=== PATIENT | male | born 1980 | race Caucasian/White ===

== ENCOUNTER 2022-01-13 09:25 | Emergency (ER) | payer MEDICAID ==
[~2022-01-13] VITALS: Ht 188 cm; Wt 107.0 kg
[2022-01-13] MEDS ORDERED: KETOROLAC TROMETHAMINE 60 MG/2 ML VIAL IM ONE (10:15)
[2022-01-13 10:16] LABS: BASOPHILS % (AUTO) 0.7 % (0.0-2.0); EOSINOPHILS % (AUTO) 1.8 % (1.0-6.0); HEMATOCRIT 38.2 % (41-53); HEMOGLOBIN 13.3 g/dL (13.5-17.5); LYMPHOCYTES # (AUTO) 1.5 K/uL (1.0-4.8); MEAN CORPUSCULAR HEMOGLOBIN 29.2 pg (26.0-34.0); MEAN CORPUSCULAR HGB CONC 34.8 G/dL (31.0-37.0); MEAN CORPUSCULAR VOLUME 84 fL (80-100); MONOCYTES # (AUTO) 0.7 K/uL (0.1-1.0); MONOCYTES % (AUTO) 8.1 % (2.0-9.0); NEUTROPHILS # (AUTO) 6.2 K/uL (1.8-7.7); NEUTROPHILS % (AUTO) 72.4 % (40.0-70.0); PLATELET COUNT (AUTO) 291 K/uL (150-450); RED BLOOD CELL COUNT(AUTO) 4.56 MIL/uL (4.50-5.90); RED CELL DISTRIBUTION WIDTH 12.8 % (11.5-14.5)
[2022-01-13 10:21] LABS: ANION GAP 11 mmol/L (8-16); CALCIUM, TOTAL 8.4 mg/dL (8.8-10.5); CARBON DIOXIDE 27 mmol/L (22-29); CHLORIDE 102 mmol/L (98-107); CREATININE 0.89 mg/dL (0.60-1.30); GLOMERULAR FILTR. RATE CALC > 60 mL/min (>60); GLUCOSE,RANDOM 170 mg/dL (70-110); POTASSIUM 3.9 mmol/L (3.5-5.1); SODIUM SERUM 140 mmol/L (136-145); UREA NITROGEN, BLOOD 16 mg/dL (7-18)
[2022-01-13 10:30] LABS: ALANINE AMINOTRANSFERASE 40 U/L (12-78); ALBUMIN 3.5 g/dL (3.4-5.0); ALKALINE PHOSPHATASE 78 U/L (46-116); ASPARTATE AMINOTRANSFERASE 38 U/L (15-37); BILIRUBIN,TOTAL 1.3 mg/dL (0.1-1.0); TOTAL PROTEIN, SERUM 6.5 g/dL (6.4-8.2)
[2022-01-13] MEDS ORDERED: POVIDONE-IODINE 10% 15 ML SOLUTION UD TP ONE (10:30)
[2022-01-13 12:00] VITALS: BP 111/62
[2022-01-13] MEDS ORDERED: IBUP-2070 PO (12:13)
== END 2022-01-13 12:38 | disposition home or self-care (01) ==
LOC: EMS 09:25
DX: S93.401A Sprain of unspecified ligament of right ankle, initial encounter (principal); X50.1XXA Overexertion from prolonged static or awkward postures, initial encounter; Y93.89 Activity, other specified; Y92.89 Other specified places as the place of occurrence of the external cause; Y99.8 Other external cause status
CPT/HCPCS: 36415; 73590; 73610; 73630; 80053; 85025; 85379; 96372; 99284; J1885; 29540

== ENCOUNTER 2022-01-14 00:16 | Emergency (ER) | payer MEDICAID ==
[~2022-01-14] VITALS: Ht 188 cm; Wt 107.0 kg
[~2022-01-14 00:16] MED LIST: IBUP-2070 PO
[2022-01-14 01:54] VITALS: BP 125/76
== END 2022-01-14 01:56 | disposition home or self-care (01) ==
LOC: EMS 00:17
DX: S93.401A Sprain of unspecified ligament of right ankle, initial encounter (principal); Z59.00 Homelessness unspecified; Z79.899 Other long term (current) drug therapy; F17.210 Nicotine dependence, cigarettes, uncomplicated; X58.XXXA Exposure to other specified factors, initial encounter; Y93.89 Activity, other specified; Y92.89 Other specified places as the place of occurrence of the external cause; Y99.8 Other external cause status
CPT/HCPCS: 29540; 99282; Z7502